=== PATIENT | male | born 1980 | race Caucasian/White ===

== ENCOUNTER 2020-03-03 00:46 | Emergency (ER) | payer OTHER ==
[~2020-03-03] VITALS: Ht 170.2 cm; Wt 82.1 kg
[2020-03-03 00:58] VITALS: BP 131/81; Ht 170.2 cm; Wt 82.1 kg
== END 2020-03-03 01:12 | disposition home or self-care (01) ==
LOC: ED 00:46
DX: L03.314 Cellulitis of groin (principal); G89.29 Other chronic pain